=== PATIENT | male | born 1945 | race Caucasian/White ===

== ENCOUNTER 2025-01-07 00:03 | Emergency (ER) | payer OTHER ==
[2025-01-07 00:28] LABS: #Basophils 0.0 thou/uL (0.0-0.2); #Eosinophils 0.1 thou/uL (0.0-0.7); #Lymphocytes 1.5 thou/uL (1.20-3.40); #Monocytes 1.2 thou/uL (0.11-0.59); #Neutrophils 6.2 thou/uL (1.40-6.50); %Basophils 0.5 % (0.0-1.0); %Eosinophils 0.9 % (0.0-10.0); %Lymphocytes 16.5 % (21.0-51.0); %Monocytes 13.2 % (0.0-10.0); %Neutrophils 68.9 % (42.0-75.0); Hematocrit 40.6 % (42.0-52.0); Hemoglobin 13.6 g/dL (14.0-18.0); Mean Corpuscular Hemoglobin 29.0 pg (27.0-31.0); Mean Corpuscular Volume 86.7 fl (78.0-98.0); Platelet Count 212 10x3/uL (130-400); Red Blood Cell (RBC) Count 4.68 mill/uL (4.70-6.10); White Blood Cell (WBC) Count 9.0 10x3/uL (4.8-10.8)
[2025-01-07 00:39] LABS: INR-International Normal Ratio 1.3; Prothrombin Time 15.8 sec (12.0-14.7)
[2025-01-07 00:40] LABS: PTT 28.7 sec (22.9-36.1)
[2025-01-07 00:58] LABS: Troponin I 0.077 ng/mL (< 0.028)
[2025-01-07 01:11] LABS: ALT (SGPT) 61 U/L (Less than 45); AST (SGOT) 56 U/L (11-34); Albumin 3.6 g/dL (3.1-4.5); Alkaline Phosphatase 124 U/L (40-110); Anion Gap 15 mmol/L (10-20); BUN (Urea Nitrogen) 22 mg/dL (8.4-25.7); Bilirubin, Total 0.8 mg/dL (0.3-1.2); Calc. Creatinine Clearance 0 mL/min (70-130); Calcium 8.7 mg/dL (7.8-10.44); Carbon Dioxide 21 mmol/L (23-31); Chloride 109 mmol/L (98-107); Globulin 3.2 g/dL (2.4-3.5); Glucose 106 mg/dL (83-110); Potassium 4.8 mmol/L (3.5-5.1); Sodium 140 mmol/L (136-145)
[2025-01-07] MEDS ORDERED: Enoxaparin 100 MG (1 mL) SYRINGE ONE (02:45)
[2025-01-07] MEDS ORDERED: dilTIAZem 25 MG/5 ML VIAL ONE (03:18)
[2025-01-07] MEDS ORDERED: Iopamidol 370 76% 100 ML VIAL ONE (09:00)
== END 2025-01-07 05:12 | disposition short-term general hospital (02) ==
LOC: EEVIPCON 00:03 → NAV ERS 00:03
DX: I63.9 Cerebral infarction, unspecified (principal); R29.810 Facial weakness; R47.81 Slurred speech; R29.706 NIHSS score 6; I12.9 Hypertensive chronic kidney disease with stage 1 through stage 4 chronic kidney disease, or unspecified chronic kidney disease; N18.9 Chronic kidney disease, unspecified; K21.9 Gastro-esophageal reflux disease without esophagitis; J44.9 Chronic obstructive pulmonary disease, unspecified; Z79.51 Long term (current) use of inhaled steroids; Z79.899 Other long term (current) drug therapy
CPT/HCPCS: 70450; 70496; 70498; 71045; 80053; 84484; 85025; 85610; 85730; 93005; 94760; 96372; 96374; J1650; Q9967